=== PATIENT | male | born 1965 | race African-American/Black ===

== ENCOUNTER 2017-03-02 13:19 | Day surgery (SDC) | payer OTHER ==
[~2017-03-02] VITALS: Ht 170.2 cm; Wt 76.9 kg
[2017-03-02 13:56] VITALS: Ht 170.2 cm; Wt 76.9 kg
[2017-03-02] MEDS ORDERED: HTN MED. DAILY (13:57)
[2017-03-02 14:41] VITALS: BP 145/92; PULSE 66; RESP 14
[2017-03-02] MEDS ORDERED: MIDAZOLAM 1 MG/ML 2 ML INJ ONE (14:55)
[2017-03-02] MEDS ORDERED: LIDOCAINE 2% (SDV) 5 ML INJ ONE (14:55)
[2017-03-02] MEDS ORDERED: PROPOFOL 20 ML ONE (14:55)
--- NOTE | 2017-03-02 15:24 | GILP ---
DATE OF PROCEDURE: NAME OF PROCEDURE: Colonoscopy. SURGEON: Leticia Hanks MD PREOPERATIVE DIAGNOSES: 1. Abdominal pain. 2. Abnormal abdominal CT scan with possible colon mass. POSTOPERATIVE DIAGNOSES 1. Colonoscopy all the way to the cecum. 2. Internal hemorrhoids. 3. No colon neoplasm was identified. INDICATION FOR THE PROCEDURE: Mr. Salud Steele is a 51-year-old male patient who had left-sided ab dominal pain. Patient underwent abdominal CT scan in one of the emergency rooms and it was suspicio us for a mass on the ____ of the colon, so the patient was scheduled for colonoscopy for further reji luation. The procedure and possible complications are well explained to the patient, he understood and consen hakan to the procedure. DESCRIPTION OF PROCEDURE: Under the influence of anesthesia, the colonoscope was carefully introduc ed in the rectum and under direct vision, it was advanced all the way to the cecum. FINDINGS: The patient had internal hemorrhoids. No colon neoplasm was identified. He tolerated the procedure very well and there was no complication from the procedure. At the end o f the procedure, he was awake with stable vital signs and he was discharged home to the care of his family. IMPRESSION: 1. Colonoscopy all the way to the cecum. 2. Internal hemorrhoids. 3. No colon neoplasm was identified. PLAN: Next screening colonoscopy in 10 years. Dictated By: LETICIA HELLER/DEVIN Conf#: [id number] DID#: [id number]
[2017-03-02 15:40] VITALS: BP 112/75; RESP 20
--- NOTE | 2017-03-03 12:31 | CONS ---
DATE OF ADMISSION: 03/02/2017 DATE OF CONSULTATION: TYPE OF CONSULTATION: Preoperative gastroenterology I thank you very much for this kind referral. HISTORY OF PRESENT ILLNESS: Mr. Salud Steele is a 52-year-old male patient who has been referred t o me for further evaluation of pain in the left lower quadrant with possible mass on the left side o f the colon. The patient went to the emergency room at [facility] and he had CT scan done and he states that he was noted to have a mass in the left side of the colon. There is no past hist ory of colon neoplasm. The patient never had screening colonoscopy. His appetite has been good and he is not losing any weight. He does not have any upper abdominal pain, nausea, or vomiting. Ther e is no history of peptic ulcer disease. He is not taking any nonsteroidal anti-inflammatory agents . There is no history of gallstones. He does not have any fever, chills, or jaundice. There is no history of liver disease. He is hypertensive. He is not a diabetic. He does not have any heart d isease or lung problem. There is no history of kidney disease. SOCIAL HISTORY: He is a smoker. He also smokes marijuana. He does not abuse alcohol. FAMILY HISTORY: Negative for gastrointestinal tract neoplasm. ALLERGIES: THERE IS NO HISTORY OF SIGNIFICANT DRUG ALLERGY. MEDICATIONS: 1. Hydrochlorothiazide. 2. Lisinopril. PHYSICAL EXAMINATION: VITAL SIGNS: He is 5 feet 7 inches tall and he weighs 175 pounds. HEART: Examination of the heart reveals normal first and second heart sounds. LUNGS: Clear. ABDOMEN: Soft without any distention. Liver and spleen are not palpable. There are no masses. Th ere is no focal tenderness. Normal bowel sounds are heard. CENTRAL NERVOUS SYSTEM: Does not reveal any focal neurological deficit. IMPRESSION: 1. Left lower quadrant abdominal pain. 2. The patient states he had abdominal CT scan done and he was noted to have a mass on the left alayna e of the colon. 3. Hypertension. 4. The patient is a smoker. 5. He smokes marijuana. PLAN: 1. Would obtain abdominal CT scan report from [facility]. 2. Colonoscopy for further evaluation. 3. Because of the use of marijuana, he will be resistant to narcotics and he needs monitored anesth esia care for the procedure. The procedure and possible complications are well explained to the patient. He understands and cons ents to the procedure. I thank you once again. With warmest personal regards, Dictated By: MEETA HELLER/DEVIN Conf#: [id number] DID#: [id number] CC: MEETA MIRANDA MD;*EndCC*
== END 2017-03-03 08:35 | disposition home or self-care (01) ==
LOC: GIL 13:19
PROVIDERS: ATTEND Internal Medicine Gastroenterology
DX: R19.4 Change in bowel habit (principal); K64.8 Other hemorrhoids; I10 Essential (primary) hypertension
CPT/HCPCS: 45378; J2250; Z7610